=== PATIENT | male | born 1965 | race Two or more races ===

== ENCOUNTER 2018-04-17 20:25 | Emergency (ER) | payer OTHER ==
[~2018-04-17] VITALS: Ht 175.3 cm; Wt 72.6 kg
[2018-04-17 21:47] VITALS: BP 148/75
== END 2018-04-17 22:03 | disposition home or self-care (01) ==
LOC: ER 20:30
DX: S52.122A Displaced fracture of head of left radius, initial encounter for closed fracture (principal); F32.9 Major depressive disorder, single episode, unspecified; V19.49XA Pedal cycle driver injured in collision with other motor vehicles in traffic accident, initial encounter; Y93.89 Activity, other specified; Y92.410 Unspecified street and highway as the place of occurrence of the external cause; Y99.8 Other external cause status
CPT/HCPCS: A4606; Z7610

== ENCOUNTER 2021-11-19 02:41 | Emergency (ER) | payer OTHER ==
[~2021-11-19] VITALS: Ht 170.2 cm; Wt 68.0 kg
[2021-11-19] MEDS ORDERED: TDAP [DIPH/PERTUSSIS/TET] 0.5 ML VIAL IM ONE ×2 (02:51→03:00)
--- NOTE | 2021-11-19 02:55 | NUR ---
TO ER BED 13. [id number] C/O GLF EYEBROW LAC, +ETOH. PT IS ALERT BUT DOES NOT REMEMBER HOW HE FELL DOWN. LAC IS ABOUT 1/2 INCH., OPEN TO AIR, ACTIVELY BLEEDING. FALL PRECAUTIONS IN PLACE. SITTER IN SIGHT.
--- NOTE | 2021-11-19 03:45 | NUR ---
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
--- NOTE | 2021-11-19 04:22 | NUR ---
PT AMBULATED TO BATHROOM, STEADY GAIT NOTED. WILL CONTINUE TO MONITOR.
--- NOTE | 2021-11-19 04:47 | NUR ---
PT OK TO DISCHARGE PER DR BRADSHAW. Patient discharged to home in stable condition. Written and verbal after care instructions given. Patient verbalizes understanding of instruction.Patient is awake and alert to self, day, and place. PT ambulatory with a steady gait
[2021-11-19 04:58] VITALS: BP 124/75
== END 2021-11-19 04:58 | disposition home or self-care (01) ==
LOC: ER 02:43
DX: S01.81XA Laceration without foreign body of other part of head, initial encounter (principal); F10.129 Alcohol abuse with intoxication, unspecified; F32.A Depression, unspecified; Z60.2 Problems related to living alone; W01.0XXA Fall on same level from slipping, tripping and stumbling without subsequent striking against object, initial encounter; Y93.89 Activity, other specified; Y92.89 Other specified places as the place of occurrence of the external cause; Y99.8 Other external cause status; Y90.9 Presence of alcohol in blood, level not specified
CPT/HCPCS: 12011; 70450; 90471; 90715; 99284; A6403

== ENCOUNTER 2022-07-25 19:27 | Emergency (ER) | payer OTHER ==
[~2022-07-25] VITALS: Ht 175.3 cm; Wt 59.0 kg
--- NOTE | 2022-07-25 20:45 | NUR ---
bibs from home for possible l shoulder dislocation s/p fall yesterday. AMBULATORY, PLACED ON BED, DEFORMITY OF L SHOULDER NOTED.
--- NOTE | 2022-07-25 20:48 | NUR ---
X-RAY TECH AT BEDSIDE
[2022-07-25] MEDS ORDERED: BUPIVACAINE 0.5 % PF 150 MG/30 ML VIAL ONE (21:25)
[2022-07-25] MEDS ORDERED: LIDOCAINE 2% 20 ML MDV ONE (21:25)
[2022-07-25] MEDS ORDERED: LIDOCAINE 2% 20 ML MDV TP ONE (21:30)
[2022-07-25] MEDS ORDERED: BUPIVACAINE HCL/PF 50 MG/10 ML VIAL IJ ONE (21:30)
[2022-07-25] MEDS ORDERED: HYDROMORPHONE 1 MG/1 ML DISP.SYRIN IV ONE (21:30)
[2022-07-25] MEDS ORDERED: HYDROMORPHONE 1 MG/1 ML DISP.SYRIN ONE (21:36)
--- NOTE | 2022-07-25 22:15 | NUR ---
CLOSED REDUCTION OF THE L SHOULDER DONE BY DR MASSEY WITH DILAUDID 1MG AND LOCAL ANESTHESIA.
--- NOTE | 2022-07-25 22:30 | NUR ---
X-RAY TECH AT BEDSIDE FOR REPEAT X-RAY OF THE L SHOULDER POST REDUCTION
[2022-07-25 23:46] VITALS: BP 142/88
--- NOTE | 2022-07-25 23:46 | NUR ---
Pt ok to be discharged home per Dr Ariza. Patient discharged to home in stable condition. Written and verbal after care instructions given. Patient verbalizes understanding of instruction.Patient is awake and alert to self, day, and place. PT ambulatory with a steady gait. IV removed. Catheter intact and site benign. Pressure and 4x4 applied to site. No bleeding noted.
== END 2022-07-25 23:47 | disposition home or self-care (01) ==
LOC: ER 19:29
DX: S43.005A Unspecified dislocation of left shoulder joint, initial encounter (principal); Z60.2 Problems related to living alone; F32.A Depression, unspecified; W19.XXXA Unspecified fall, initial encounter; Y93.89 Activity, other specified; Y92.89 Other specified places as the place of occurrence of the external cause; Y99.8 Other external cause status
CPT/HCPCS: 23655; 99284; 73030 ×2; 96374; J3490 ×2; J1170